=== PATIENT | female | born 1950 | race African-American/Black ===

== ENCOUNTER 2016-09-19 16:08 | Emergency (ER) | payer OTHER | END 2016-09-19 18:00 | disposition home or self-care (01) | LOC: CFTX 16:08 → CED 16:08 → CFTX 16:47 | DX: H10.32 Unspecified acute conjunctivitis, left eye (principal); I10 Essential (primary) hypertension; J44.9 Chronic obstructive pulmonary disease, unspecified; K74.60 Unspecified cirrhosis of liver; Z88.0 Allergy status to penicillin; Z88.5 Allergy status to narcotic agent | CPT/HCPCS: 99282 ==

== ENCOUNTER → 2016-12-07 | Outpatient (CLI) | payer OTHER ==
--- NOTE | ~2016-12-07 | US6 ---
[facility] A Service of [facility] & [facility] / [facility] RADIOLOGY TEXT RESULTS PATIENT: ILIA GARCIA LOCATION: [facility] : 52 UNIT #: [id number] AGE: [address]: MASHA BUCHANAN JR SEX: F ORDER DR: [id number] [facility] [address] [place], [place] [address] [id number] O MR#: [id number] Acc #: [id number] NAME: ILIA GARCIA : 1950 SEX: F STUDY DATE/TIME: 12/07/2016 9:40 UNIT: [facility] ROOM: STUDY DESCRIPTION: US Abdominal Limited Attending Physician: Sylvain Buchanan M.D. Referring Physician: Sylvain Buchanan M.D. Ordering Physician: Sylvain Buchanan M.D. Primary Care Physician: Jessika Tyson M.D. MEDICAL IMAGING REPORT This report is preliminary unless electronic signature is present EXAM Right upper quadrant ultrasound. 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 TECHNIQUE Tay-scale AND color Doppler sonographic images were obtained through the right upper quadrant. FINDINGS Visualized portions of the pancreas appear normal. The liver is heterogeneous in echotexture. It is enlarged. The patents examiner measures up to 15.5 cm in length, although I think it actually is larger than the measured area. I do not see any focal hepatic lesions. The patient had prior CT of the chest from January 27, 2016, which showed a nodular contour to the liver, characteristic of cirrhosis although this is not clearly seen on today's ultrasound. There is no intra or extrahepatic biliary dilatation. Main portal vein is patent with hepatorenal flow. The patient's right kidney appears relatively echogenic. Finding is nonspecific but can be seen in the setting of chronic medical renal disease. The kidney itself measures within normal size limits. There are no solid or cystic renal masses. There is no hydronephrosis. I do not see any evidence of cortical thinning. IMPRESSION 1. Heterogeneous liver parenchyma as well as hepatomegaly. On patient's prior CT the liver appeared to be frankly cirrhotic, although this is not convincingly seen on today's ultrasound. No focal hepatic lesions are seen. 2. Increased echogenicity of the right kidney. Finding is nonspecific, but can be seen in the setting of chronic medical renal disease. Of [facility] A Service of [facility] RADIOLOGY TEXT RESULTS PATIENT: ILIA GARCIA LOCATION: [facility] : 52 UNIT #: [id number] AGE: [address]: MASHA BUCHANAN JR SEX: F ORDER DR: note the kidney itself measures within normal size limits and I do not see any cortical thinning. Dictated by... Naty Garnett M.D. THIS IS AN ELECTRONICALLY VERIFIED REPORT Naty Garnett M.D. at 12/07/2016 4:20 PM AFF/gz TD: 12/07/2016 16:11 JOB #: [id number] MEDICAL IMAGING REPORT Page 1 of 1 COPY
--- NOTE | ~2016-12-07 | BD1 ---
[facility] A Service of [facility] & [facility] RADIOLOGY TEXT RESULTS PATIENT: ILIA GARCIA LOCATION: [facility] : 51 UNIT #: [id number] AGE: [address]: MASHA BUCHANAN JR SEX: F ORDER DR: [id number] [facility] [address] [place], [place] [address] [id number] O MR#: [id number] Acc #: [id number] NAME: ILIA GARCIA : 1950 SEX: F STUDY DATE/TIME: 12/07/2016 9:36 UNIT: [facility] ROOM: STUDY DESCRIPTION: Dexa Bone Dens 1+ Site Attending Physician: Sylvain Buchanan M.D. Referring Physician: Sylvain Buchanan M.D. Ordering Physician: Sylvain Buchanan M.D. Primary Care Physician: Jessika Tyson M.D. MEDICAL IMAGING REPORT This report is preliminary unless electronic signature is present EXAM Bone density thigh and hip, 12/07/2016. HISTORY Cirrhosis. Cardiac rhythm DNICET view BLE. Smoker 30+ years. Not currently. TECHNIQUE Bone density scanning performed upper four lumbar vertebral segments and proximal left femur in 66-year-old 127 pound female. COMPARISON No comparison. FINDINGS Upper four lumbar vertebral segments, total mineral density 0.72 g/cm2 for T-score 3.5 standard deviation below mean for a reference population normal young individuals and a Z-score 1.6 standard deviations below the mean for age-matched population. Proximal left femur, total bone mineral density is 0.750 g/cm2 for a T-score 1.8 standard deviations below mean for reference population normal young individuals and a Z-score 0.8 standard deviation below the mean for age-matched population. Left femoral neck specifically bone mineral density 0.631 g/cm2 for a T-score 2.3 standard deviations below mean for reference population normal young individuals and a Z-score 1.0 standard deviations below the mean for age-matched population. IMPRESSION 1. Osteoporosis in the upper four lumbar vertebral segments overall. The patient is felt to be at significantly increased risk for fracture. Treatment options may be considered. Continued STS. [facility] A Service of [facility] & [facility] RADIOLOGY TEXT RESULTS PATIENT: ILIA GARCIA LOCATION: [facility] : 52 UNIT #: [id number] AGE: [address]: MASHA BUCHANAN JR SEX: F ORDER DR: surveillance is recommended. Dictated by... Christopher Dumont M.D. THIS IS AN ELECTRONICALLY VERIFIED REPORT Christopher Dumont M.D. at 12/09/2016 7:36 AM JOSE CARLOS/ayse TD: 12/07/2016 15:55 JOB #: [id number] MEDICAL IMAGING REPORT Page 1 of 1 COPY
== END | disposition home or self-care (01) ==
LOC: CWCC 09:15
DX: Z13.820 Encounter for screening for osteoporosis (principal); M81.0 Age-related osteoporosis without current pathological fracture; K74.3 Primary biliary cirrhosis; K74.60 Unspecified cirrhosis of liver; K76.9 Liver disease, unspecified; R16.0 Hepatomegaly, not elsewhere classified; N28.9 Disorder of kidney and ureter, unspecified
CPT/HCPCS: 76705; 77080